=== PATIENT | female | born 1970 | race Two or more races ===

== ENCOUNTER 2016-06-01 07:17 | Day surgery (SDC) | payer OTHER, MEDICAID ==
[~2016-06-01 07:17] MED LIST: FENTANYL 250 MCG/5 ML AMP IV PRN; LACTATED RINGERS 1,000 ML IV SCH; LIDOCAINE Viscous 2% 15 ML UDCUP PO PRN; MIDAZOLAM HCL 5 MG/5 ML VIAL IV PRN
[2016-06-01] MEDS ORDERED: LACTATED RINGERS 1,000 ML ONE (07:34)
[2016-06-01] MEDS ORDERED: IV START KIT ONE (07:34)
[2016-06-01] MEDS ORDERED: FENTANYL 100 MCG/2 ML VIAL ONE (07:54)
[2016-06-01] MEDS ORDERED: MIDAZOLAM HCL 5 MG/5 ML VIAL ONE (07:54)
[2016-06-01] MEDS ORDERED: LIDOCAINE Viscous 2% 15 ML UDCUP ONE (07:54)
[2016-06-01 12:59] LABS: HELICOBACTER PYLORII DETECTION NEGATIVE (NEGATIVE)
== END 2016-06-01 09:05 | disposition home or self-care (01) ==
LOC: SDC 07:17
PROVIDERS: ATTEND Internal Medicine Gastroenterology
PROC: 0DB98ZX Excision of Duodenum, Via Natural or Artificial Opening Endoscopic, Diagnostic (ICD-10-PCS; principal; 2016-06-01)
PROC: 0DB68ZX Excision of Stomach, Via Natural or Artificial Opening Endoscopic, Diagnostic (ICD-10-PCS; 2016-06-01)
DX: K29.70 Gastritis, unspecified, without bleeding (principal); K29.80 Duodenitis without bleeding; M54.5 Low back pain; M89.29 Other disorders of bone development and growth, multiple sites; Z91.040 Latex allergy status
CPT/HCPCS: 87081; 43239; J3010; J2250; A9270; J7120

== ENCOUNTER 2016-06-25 15:31 | Emergency (ER) | payer OTHER, MEDICAID ==
[2016-06-25] MEDS ORDERED: IOPAMIDOL 370 (76%) 100 ML VIAL IV ONE (15:32)
[2016-06-25] MEDS ORDERED: ONDANSETRON 4 MG/2ML 2 ML VIAL ONE (17:24)
[2016-06-25] MEDS ORDERED: HYDROMORPHONE HCL 1 MG/ML SYRINGE ONE (17:24)
[2016-06-25 17:55] LABS: URINE BILIRUBIN NEGATIVE (NEGATIVE); URINE BLOOD NEGATIVE (NEGATIVE); URINE GLUCOSE (UA) NEGATIVE (NEGATIVE); URINE LEUKOCYTE ESTERASE NEGATIVE (NEGATIVE); URINE NITRITE NEGATIVE (NEGATIVE); URINE PROTEIN NEGATIVE (NEGATIVE); URINE UROBILINOGEN NORMAL (0-1 mg/dl)
[2016-06-25 17:59] LABS: URINE APPEARANCE CLEAR; URINE COLOR YELLOW
[2016-06-25 18:01] LABS: ALB/GLOB RATIO 1.6 (>1.0); ALBUMIN 4.5 gm/dL (3.5-5.7); CALCIUM 10.2 mg/dL (8.6-10.3)
[2016-06-25 18:10] LABS: ABSOLUTE NEUTROPHIL COUNT 4.7 K/mm3 (1.8-7.7); BASO % 0.4 % (0.2-1.0); EOS # 0.1 (0.0-0.5); HEMATOCRIT 39.7 % (37.0-47.0); HEMOGLOBIN 13.5 gm/l (12.0-16.0); IMM NEUT% 0.4 % (0-1); LYMPH # 2.8 (1.0-4.8); LYMPH % 33.3 % (15-45); MEAN CELL VOLUME 93.6 fl (81.0-99.0); MEAN CORPUSCULAR HEMOGLOBIN 31.8 pg (27.0-31.0); MEAN PLATELET VOLUME 10.7 fl (7.4-10.4); MONO # 0.7 (0.0-0.8); MONO % 8.7 % (4-12); NEUT % 56.2 % (43-75); PLATELET COUNT 303 K/mm3 (130-400); RED CELL DISTRIBUTION WIDTH 11.8 % (11.5-14.5)
--- NOTE | 2016-06-25 18:24 | CT ---
CT ABDOMEN AND PELVIS WITH CONTRAST HISTORY: Right lower quadrant pain. TECHNIQUE: Following intravenous administration of 100cc of Isovue-370, contiguous axial images were acquired from the lung bases to the ischial tuberosities. Oral contrast was not administered. COMPARISON: 03/20/2014 FINDINGS: LUNG BASES: No gross airspace consolidation or pleural effusion. LIVER: No focal lesion. SPLEEN: No focal lesion. PANCREAS: No focal lesion. ADRENAL GLANDS: No mass effect. KIDNEYS: No focal lesion. No collecting system dilatation. GALLBLADDER: Surgically absent. Residual prominence of common bile duct at the 1.7 cm in size. BOWEL: Moderate fecal loading. Limited assessment of the distal colon due to decompression. No abnormal small bowel dilatation. Wall enhancement of small bowel loops most notable at the right lower quadrant. APPENDIX: Portions of an unremarkable appendix are seen. PELVIC ORGANS: Posthysterectomy change heterogeneous enhancement of the adnexal structures with redemonstration of a complex cystic lesion now measuring 4.1 x 2.8 x 2.0 cm compared to 2.9 x 2.7 x 1.9 cm previously, cystic neoplasm is possible additional low-attenuation lesions of the left ovary up to 1.6 cm in size. There is minimal bladder wall thickening. FREE FLUID: No gross free fluid identified. ABDOMINOPELVIC LYMPH NODES: No abnormally enlarged lymph nodes identified. ABDOMINAL AORTA: Normal caliber. OSSEOUS STRUCTURES: Early lower lumbar disc degeneration. No grossly destructive lesion. IMPRESSION: 1. Nonobstructive appearance of bowel, portions of an unremarkable appendix identified. Nonspecific wall enhancement of multiple loops of small bowel at the right lower quadrant, enteritis is possible. 2. Minor increase in prominence of complex cystic lesion of the midline pelvis considerations, which may indicate hydrosalpinx seen on prior ultrasound. Low-attenuation lesions of the left ovary up to 1.6 cm in size. Consider sonographic follow-up. 3. Postcholecystectomy change with extrahepatic biliary dilatation, seen previously. Results were electronically transmitted to the electronic medical record at 06/25/2016 at 1819 hours.
[2016-06-26 14:43] LABS: CHLAMYDIA BD Negative (Negative); N.GONORRHOEAE BD Negative (Negative); SOURCE Urine (())
[2016-06-30] MEDS ORDERED: MIDAZOLAM HCL 5 MG/5 ML VIAL IV PRN (07:02)
[2016-06-30] MEDS ORDERED: FENTANYL 250 MCG/5 ML AMP IV PRN (07:02)
[2016-06-30] MEDS ORDERED: LACTATED RINGERS 1,000 ML IV SCH (07:15)
== END 2016-06-25 19:05 | disposition home or self-care (01) ==
LOC: ED 15:31
DX: R10.13 Epigastric pain (principal); R11.0 Nausea; E28.2 Polycystic ovarian syndrome

== ENCOUNTER 2016-06-30 07:24 | Day surgery (SDC) | payer OTHER, MEDICAID ==
[2016-06-30] MEDS ORDERED: LACTATED RINGERS 1,000 ML ONE (07:28)
[2016-06-30] MEDS ORDERED: IV START KIT ONE (07:28)
[2016-06-30] MEDS ORDERED: FENTANYL 250 MCG/5 ML AMP ONE (07:51)
[2016-06-30] MEDS ORDERED: MIDAZOLAM HCL 5 MG/5 ML VIAL ONE (07:51)
[2016-06-30] MEDS ORDERED: ONDANSETRON 4 MG/2ML 2 ML VIAL IV ONE (07:59)
--- NOTE | 2016-07-02 09:20 | SURGPATH ---
[facility] [address] [place] [id number] Patient Name: MARTIN CUNNINGHAM MR#: [id number] : 1970 Gender: F Specimen #: [id number] Collected: 06/30/2016 Received: 07/01/2016 Reported: 07/02/2016 Submitting Phys: JEY RUBIO Copy To Phys: [facility] Clinical History / Pre-Operative Diagnosis: RLQ PAIN; ABNORMAL CT Specimen Source / Surgical Procedure Performed: #1-TERMINAL ILEUM BIOPSY; #2-CECUM BIOPSY; #3-SIGMOID BIOPSY Interpretation: 1. TERMINAL ILEUM, BIOPSY: - NO PATHOLOGIC ABNORMALITY 2. CECUM, BIOPSY: - NO PATHOLOGIC ABNORMALITY 3. SIGMOID, BIOPSY: - NO PATHOLOGIC ABNORMALITY Electronically Signed Out Aldair Vallecillo M.D. Gross Description: #1 The specimen is received in a formalin filled container labeled with the patient's name and "terminal ileum biopsy". Two ariza biopsies are 0.4 and 0.5 cm. Totally embedded in cassette #1. #2 The specimen is received in a formalin filled container labeled with the patient's name and "cecum biopsy". Three ariza biopsies are each 0.3 cm. Totally embedded in cassette #2. #3 The specimen is received in a formalin filled container labeled with the patient's name and "sigmoid biopsy". Three thompson-ariza biopsies are each 0.4 cm. Totally embedded in cassette #3. Lencho Whitfield PJosselin. Microscopic Description: Sections show normal terminal ileum and colonic mucosa. 1: 30945 2: 02242 3: 90432 R10.30
== END 2016-06-30 09:11 | disposition home or self-care (01) ==
LOC: SDC 07:24
PROVIDERS: ATTEND Internal Medicine Gastroenterology
PROC: 0DBN8ZX Excision of Sigmoid Colon, Via Natural or Artificial Opening Endoscopic, Diagnostic (ICD-10-PCS; principal; 2016-06-30)
PROC: 0DBB8ZX Excision of Ileum, Via Natural or Artificial Opening Endoscopic, Diagnostic (ICD-10-PCS; 2016-06-30)
PROC: 0DBH8ZX Excision of Cecum, Via Natural or Artificial Opening Endoscopic, Diagnostic (ICD-10-PCS; 2016-06-30)
DX: R10.31 Right lower quadrant pain (principal); R93.3 Abnormal findings on diagnostic imaging of other parts of digestive tract; Z88.8 Allergy status to other drugs, medicaments and biological substances; Z91.040 Latex allergy status; Z79.899 Other long term (current) drug therapy